=== PATIENT | female | born 1990 | race Caucasian/White ===

== ENCOUNTER 2021-01-30 04:10 | Emergency (ER) | payer SELFPAY ==
[~2021-01-30] VITALS: Ht 154.9 cm; Wt 66.0 kg
[2021-01-30] MEDS ORDERED: MORPHINE SULFATE 4 MG/ML CPJ (NOT FOR IM USE) IV SCH (05:15)
[2021-01-30] MEDS ORDERED: ONDANSETRON HCL 4MG/2ML INJ IV SCH (05:15)
[2021-01-30 08:01] LABS: CHLORIDE 110 mEq/L (98-107)
[2021-01-30 08:12] LABS: HEMATOCRIT. 46.7 % (36.0-48.0); HEMOGLOBIN. 15.4 g/dL (12.0-16.0); MEAN CORPUSCULAR HEMOGLOBIN 28.7 pg (28.0-32.0); MEAN CORPUSCULAR VOLUME 87.2 fL (81.0-99.0); PROTHROMBIN TIME 10.9 sec (9.6-11.0); RED BLOOD CELL COUNT 5.36 mill/uL (4.2-5.4)
[2021-01-30 08:13] LABS: BASOPHILS % 0.8 % (0.0-2.0); EOSINOPHILS % 1.6 % (0.0-5.0); LYMPHOCYTES % 0.6 % (20.0-50.0); MEAN PLATELET VOLUME 9.7 fl (7.4-10.4); MONOCYTES % 7.9 % (2.0-8.0); NEUTROPHILS % 69.1 % (40.0-76.0); PLATELET 305 x1000/uL (130-400); RED CELL DISTRIBUTION WIDTH 13.3 % (11.6-14.6)
[2021-01-30] MEDS ORDERED: AMOX-494 MT (11:17)
[2021-01-30 11:45] VITALS: BP 130/77
[2021-01-30] MEDS ORDERED: IOHEXOL-350 100 ML BOTTLE ONE (11:47)
== END 2021-01-30 11:58 | disposition home or self-care (01) ==
LOC: ER 04:10
DX: R07.89 Other chest pain (principal); J18.9 Pneumonia, unspecified organism; E11.9 Type 2 diabetes mellitus without complications; I10 Essential (primary) hypertension
CPT/HCPCS: 36415; 71045; 71275; 80053; 81025; 83690; 84484; 85025; 85610; 99285; J2270; J2405; Q9967